=== PATIENT | female | born 1955 | race Hispanic/Latino ===

== ENCOUNTER 2019-06-03 15:56 | Emergency (ER) | payer OTHER, MEDICARE ==
[2019-06-03 16:50] LABS: HEMATOCRIT 35.3 % (36-48); LYMPHOCYTES % (AUTO) 33.5 % (21.0-51.0); MEAN CORPUSCULAR HGB CONC 34.1 g/dL (32.0-36.0); MONOCYTES % (AUTO) 7.1 % (3.0-13.0); NEUTROPHILS % (AUTO) 54.4 % (40.0-77.0); NUCLEATED RED BLOOD CELLS 0.1 % (0.0-0.19); PLATELET COUNT (AUTO) 224 K/uL (130-400); RED BLOOD CELL COUNT(AUTO) 4.01 MIL/uL (4.00-5.50); RED CELL DISTRIBUTION WIDTH 12.4 % (11.0-15.5); WHITE BLOOD COUNT (AUTO) 5.9 K/uL (4.8-10.8)
[2019-06-03 16:59] LABS: CREATININE 0.8 mg/dL (0.5-1.5); POTASSIUM 3.4 mmol/L (3.5-5.1)
[2019-06-03 17:03] LABS: INR 0.93 (0.85-1.15); PARTIAL THROMBOPLASTIN TIME 24.8 SEC (26.3-35.5); PROTHROMBIN TIME 9.8 SEC (9.6-11.6)
[2019-06-03 17:09] LABS: ALBUMIN 4.1 g/dL (3.5-5.0); BILIRUBIN,TOTAL 1.5 mg/dL (0.2-1.0); TOTAL PROTEIN, SERUM 7.6 g/dL (6.0-8.3)
[2019-06-03 17:20] LABS: B-TYPE NATRIURETIC PEPTIDE 26 pg/mL (0-100)
[2019-06-03] MEDS ORDERED: KETOROLAC TROMETHAMINE 15MG/ML ONE (17:38)
[2019-06-03] MEDS ORDERED: ASPIRIN 325 MG TABLET ONE (19:14)
[2019-06-03] MEDS ORDERED: LORAZEPAM 2 MG/ML 1 ML VIAL ONE (19:15)
== END 2019-06-03 20:51 | disposition home or self-care (01) ==
LOC: EDH 15:56
DX: R07.89 Other chest pain (principal); M25.511 Pain in right shoulder; F41.9 Anxiety disorder, unspecified; I10 Essential (primary) hypertension; Z85.3 Personal history of malignant neoplasm of breast; Z91.041 Radiographic dye allergy status; Z88.8 Allergy status to other drugs, medicaments and biological substances; Z79.899 Other long term (current) drug therapy
CPT/HCPCS: 36415; 71045; 80053; 82550; 83874; 83880; 84484 ×2; 85025; 85610; 85730; 93005; 96374; 96375; 99285; J1885; J2060

== ENCOUNTER → 2019-08-27 | Outpatient (CLI) | payer OTHER, MEDICARE | END | disposition home or self-care (01) | LOC: RAH 09:12 | PROVIDERS: ATTEND Internal Medicine Gastroenterology | DX: K76.0 Fatty (change of) liver, not elsewhere classified (principal); N28.1 Cyst of kidney, acquired | CPT/HCPCS: 76700 ==

== ENCOUNTER → 2019-09-27 | Outpatient (CLI) | payer OTHER, MEDICARE | END | disposition home or self-care (01) | LOC: RAH 08:40 | PROVIDERS: ATTEND Urology | DX: R31.0 Gross hematuria (principal); N13.30 Unspecified hydronephrosis; I87.8 Other specified disorders of veins; Z90.49 Acquired absence of other specified parts of digestive tract | CPT/HCPCS: 74176 ==

== ENCOUNTER → 2019-11-10 | Outpatient (CLI) | payer OTHER, MEDICARE ==
[~2019-11-10] MED LIST: FUROSEMIDE 10 MG/ML 2ML VIAL ONE
== END | disposition home or self-care (01) ==
LOC: RAH 14:04
PROVIDERS: ATTEND Urology
DX: N13.39 Other hydronephrosis (principal)
CPT/HCPCS: 78708; A9562; J1940

== ENCOUNTER → 2020-09-19 | Outpatient (CLI) | payer MEDICARE ==
[~2020-09-19] MED LIST changes: -FUROSEMIDE 10 MG/ML 2ML VIAL ONE; +FUROSEMIDE 10 MG/ML 4ML VIAL ONE
== END | disposition home or self-care (01) ==
LOC: RAH 13:57
PROVIDERS: ATTEND Urology
DX: N13.39 Other hydronephrosis (principal)
CPT/HCPCS: 78708; A9562; J1940

== ENCOUNTER 2020-12-20 05:55 | Day surgery (SDC) | payer MEDICARE ==
[~2020-12-20] VITALS: Ht 176.5 cm; Wt 76.2 kg
[~2020-12-20 05:55] MED LIST changes: +AMLO-258 PO; +DICY20TA11 PO; -FUROSEMIDE 10 MG/ML 4ML VIAL ONE; +LOSA25TA41 PO; +OMEP20TA25 PO; +TRAM50TA4 PO
[2020-12-20] MEDS ORDERED: SODIUM CHLORIDE 0.9% 1000ML 1,000 ML IV ONE (06:14)
[2020-12-20 07:06] VITALS: BP 115/61
[2020-12-20] MEDS ORDERED: PROPOFOL 10 MG/ML 20ML VIAL IV ONE (07:59)
[2020-12-20 08:15] VITALS: BP 105/53
[2020-12-20 08:20] VITALS: BP 120/69
[2020-12-20 08:25] VITALS: BP 125/68
[2020-12-20 08:30] VITALS: BP 135/65
[2020-12-20 08:45] VITALS: BP 133/71
== END 2020-12-20 08:50 | disposition home or self-care (01) ==
LOC: DAH 05:55 → ENDO 05:55
PROVIDERS: ATTEND Internal Medicine Gastroenterology
DX: K31.89 Other diseases of stomach and duodenum (principal); Z20.822 Contact with and (suspected) exposure to COVID-19; R14.0 Abdominal distension (gaseous); K59.00 Constipation, unspecified; E80.4 Gilbert syndrome; K76.0 Fatty (change of) liver, not elsewhere classified; I10 Essential (primary) hypertension; K21.9 Gastro-esophageal reflux disease without esophagitis; Z79.899 Other long term (current) drug therapy; Z79.82 Long term (current) use of aspirin; Z85.3 Personal history of malignant neoplasm of breast; Z72.89 Other problems related to lifestyle; Z88.8 Allergy status to other drugs, medicaments and biological substances; Z88.3 Allergy status to other anti-infective agents; Z80.0 Family history of malignant neoplasm of digestive organs
CPT/HCPCS: 43237; A4215 ×2; A4221; A4222; A4223; A4606; A4620; A4657; A4663; C9803; J2704; J7030; U0003

== ENCOUNTER 2021-01-02 06:18 | Day surgery (SDC) | payer MEDICARE ==
[2021-01-02] VITALS (7 sets, daily range): BP systolic 119–135; BP diastolic 66–85
[~2021-01-02] VITALS: Ht 175.3 cm; Wt 74.4 kg
[~2021-01-02 06:18] MED LIST changes: -DICY20TA11 PO; -OMEP20TA25 PO
[2021-01-02] MEDS ORDERED: SODIUM CHLORIDE 0.9% 1000ML 1,000 ML IV ONE (06:19)
[2021-01-02] MEDS ORDERED: PROPOFOL 10 MG/ML 20ML VIAL IV ONE ×2 (06:58→08:22)
== END 2021-01-02 10:15 | disposition home or self-care (01) ==
LOC: ENDO 06:18 → DAH 06:18 → ENDO 10:15
PROVIDERS: ATTEND Internal Medicine Gastroenterology
DX: K31.89 Other diseases of stomach and duodenum (principal); R14.0 Abdominal distension (gaseous); K21.9 Gastro-esophageal reflux disease without esophagitis; K59.00 Constipation, unspecified; E80.4 Gilbert syndrome; K76.0 Fatty (change of) liver, not elsewhere classified; I10 Essential (primary) hypertension; Z80.0 Family history of malignant neoplasm of digestive organs; Z85.3 Personal history of malignant neoplasm of breast; Z90.49 Acquired absence of other specified parts of digestive tract; Z98.890 Other specified postprocedural states; Z90.13 Acquired absence of bilateral breasts and nipples
CPT/HCPCS: 43238; A4215 ×2; A4216; A4221; A4222; A4223; A4606; A4620; A4657; A4663; J2704 ×2; J7030

== ENCOUNTER → 2021-04-06 | Outpatient (CLI) | payer MEDICARE ==
[~2021-04-06] MED LIST changes: +FUROSEMIDE 40MG VIAL ONE
== END | disposition home or self-care (01) ==
LOC: RAH 13:48
PROVIDERS: ATTEND Internal Medicine Hematology & Oncology
DX: C50.919 Malignant neoplasm of unspecified site of unspecified female breast (principal); N60.11 Diffuse cystic mastopathy of right breast; E86.0 Dehydration; D64.9 Anemia, unspecified; N13.30 Unspecified hydronephrosis
CPT/HCPCS: 78708; A9562; J1940

== ENCOUNTER 2022-06-05 11:00 | Emergency (ER) | payer MEDICARE ==
[~2022-06-05] VITALS: Ht 175.3 cm; Wt 77.1 kg
[~2022-06-05 11:00] MED LIST changes: -FUROSEMIDE 40MG VIAL ONE
[2022-06-05 11:30] LABS: EOSINOPHILS % (AUTO) 2.7 % (0.0-8.0); HEMATOCRIT 38.2 % (36-48); LYMPHOCYTES % (AUTO) 48.8 % (21.0-51.0); MEAN CORPUSCULAR HEMOGLOBIN 29.5 pg (27.0-33.0); MEAN CORPUSCULAR VOLUME 86.8 fL (79-99); MONOCYTES % (AUTO) 7.3 % (3.0-13.0); NEUTROPHILS % (AUTO) 39.8 % (40.0-77.0); PLATELET COUNT (AUTO) 237 K/uL (130-400); RED CELL DISTRIBUTION WIDTH 12.7 % (11.0-15.5); WHITE BLOOD COUNT (AUTO) 5.2 K/uL (4.8-10.8)
[2022-06-05] MEDS ORDERED: MECLIZINE HCL 25 MG TABLET PO ONE (11:30)
[2022-06-05 11:40] LABS: CREATININE 0.8 mg/dL (0.5-1.5); POTASSIUM 3.6 mmol/L (3.5-5.1)
[2022-06-05 11:43] LABS: INR 0.93 (0.85-1.15); PROTHROMBIN TIME 9.8 SEC (9.6-11.6)
[2022-06-05 11:44] LABS: PARTIAL THROMBOPLASTIN TIME 24.2 SEC (26.3-35.5)
[2022-06-05 11:45] LABS: APPEARANCE,URINE CLEAR (CLEAR); BILIRUBIN,URINE NEGATIVE (NEGATIVE); COLOR,URINE LIGHT-YELLOW (YELLOW); GLUCOSE, URINE (UA) NEGATIVE (NEGATIVE); KETONES,URINE NEGATIVE (NEGATIVE); LEUKOCYTE ESTERASE ,URINE NEGATIVE Leu/uL (NEGATIVE); NITRATE,URINE NEGATIVE (NEGATIVE); PH,URINE 5.5 (5.0-8.0); PROTEIN,URINE NEGATIVE (NEGATIVE); UROBILINOGEN,URINE 0.2 mg/dL (0.2-1.0)
[2022-06-05 11:45] LABS: ALBUMIN 4.3 g/dL (3.5-5.0); TOTAL PROTEIN, SERUM 7.7 g/dL (6.0-8.3)
[2022-06-05 11:58] LABS: MUCUS,URINE RARE LPF (None Seen); SQUAMOUS EPITHELIAL CELL,UR RARE /HPF (0-2); WBC,URINE 0-1 /HPF (0-1)
[2022-06-05 12:09] LABS: B-TYPE NATRIURETIC PEPTIDE 28 pg/mL (0-100)
[2022-06-05] MEDS ORDERED: MECL-226 PO (13:11)
[2022-06-05 13:25] VITALS: BP 136/85
== END 2022-06-05 13:31 | disposition home or self-care (01) ==
LOC: EDH 11:00
DX: R42 Dizziness and giddiness (principal); I10 Essential (primary) hypertension; Z90.89 Acquired absence of other organs; Z98.890 Other specified postprocedural states; Z90.49 Acquired absence of other specified parts of digestive tract; Z79.899 Other long term (current) drug therapy; Z88.8 Allergy status to other drugs, medicaments and biological substances
CPT/HCPCS: 36415; 70450; 71045; 80053; 81001; 82550; 82948; 83721; 83880; 84484; 85025; 85610; 85730; 93005

== ENCOUNTER → 2022-06-29 | Outpatient (CLI) | payer MEDICARE ==
[~2022-06-29] MED LIST changes: +MECL-226 PO
== END | disposition home or self-care (01) ==
LOC: SHCH 15:23
PROVIDERS: ATTEND Internal Medicine Cardiovascular Disease
DX: R00.1 Bradycardia, unspecified (principal)
CPT/HCPCS: 93306; 93356

== ENCOUNTER → 2022-07-24 | Outpatient (CLI) | payer MEDICARE ==
[~2022-07-24] MED LIST changes: +ALBUTEROL 0.083% 2.5 MG/3 ML INH IH ONE
== END | disposition home or self-care (01) ==
LOC: RESP 08:32
PROVIDERS: ATTEND Internal Medicine Cardiovascular Disease
DX: R06.02 Shortness of breath (principal); R07.9 Chest pain, unspecified
CPT/HCPCS: 94060; 94727; 94729

== ENCOUNTER → 2023-03-24 | Outpatient (CLI) | payer MEDICARE ==
[~2023-03-24] MED LIST changes: -ALBUTEROL 0.083% 2.5 MG/3 ML INH IH ONE
== END | disposition home or self-care (01) ==
LOC: RAH 09:02
PROVIDERS: ATTEND Internal Medicine Gastroenterology
DX: K44.9 Diaphragmatic hernia without obstruction or gangrene (principal); R10.11 Right upper quadrant pain; C49.A2 Gastrointestinal stromal tumor of stomach; Z80.0 Family history of malignant neoplasm of digestive organs
CPT/HCPCS: 74240

== ENCOUNTER 2023-04-04 08:35 | Emergency (ER) | payer MEDICARE ==
[~2023-04-04] VITALS: Ht 175.3 cm; Wt 78.0 kg
[2023-04-04 09:35] LABS: BASOPHILS % (AUTO) 1.4 % (0.0-5.0); EOSINOPHILS % (AUTO) 4.3 % (0.0-8.0); HEMATOCRIT 38.7 % (36-48); LYMPHOCYTES % (AUTO) 33.5 % (21.0-51.0); MEAN CORPUSCULAR HEMOGLOBIN 29.5 pg (27.0-33.0); MEAN CORPUSCULAR HGB CONC 33.3 g/dL (32.0-36.0); MEAN CORPUSCULAR VOLUME 88.4 fL (79-99); MONOCYTES % (AUTO) 8.1 % (3.0-13.0); NEUTROPHILS % (AUTO) 52.3 % (40.0-77.0); PLATELET COUNT (AUTO) 218 K/uL (130-400); RED BLOOD CELL COUNT(AUTO) 4.38 MIL/uL (4.00-5.50); RED CELL DISTRIBUTION WIDTH 11.9 % (11.0-15.5); WHITE BLOOD COUNT (AUTO) 5.2 K/uL (4.8-10.8)
[2023-04-04 09:45] LABS: CREATININE 0.8 mg/dL (0.5-1.5); POTASSIUM 4.6 mmol/L (3.5-5.1)
[2023-04-04 09:49] LABS: ALBUMIN 3.9 g/dL (3.5-5.0); TOTAL PROTEIN, SERUM 7.5 g/dL (6.0-8.3)
[2023-04-04 09:58] LABS: APPEARANCE,URINE CLEAR (CLEAR); BILIRUBIN,URINE NEGATIVE (NEGATIVE); COLOR,URINE LIGHT-YELLOW (YELLOW); GLUCOSE, URINE (UA) >=1000 mg/dL (NEGATIVE); KETONES,URINE 5 mg/dL (NEGATIVE); LEUKOCYTE ESTERASE ,URINE NEGATIVE Leu/uL (NEGATIVE); NITRATE,URINE NEGATIVE (NEGATIVE); OCCULT BLOOD,URINE SMALL (NEGATIVE); PH,URINE 5.5 (5.0-8.0); PROTEIN,URINE 30 mg/dL (NEGATIVE); UROBILINOGEN,URINE 0.2 mg/dL (0.2-1.0)
[2023-04-04 10:05] LABS: BACTERIA,URINE RARE /HPF (None Seen); MUCUS,URINE RARE LPF (None Seen); SQUAMOUS EPITHELIAL CELL,UR RARE /HPF (0-2)
[2023-04-04] MEDS ORDERED: 0.9%NACL 1000ML 1,000 ML IV ONE (11:30)
[2023-04-04] MEDS ORDERED: INSULIN HUMULIN R 100 UNIT/ML 3ML IV ONE (11:30)
[2023-04-04] MEDS ORDERED: METF-446 PO (13:57)
[2023-04-04 14:00] VITALS: BP 166/70; PULSE 62; RESP 16; O2SAT 100
== END 2023-04-04 14:12 | disposition home or self-care (01) ==
LOC: EDH 08:35
DX: I10 Essential (primary) hypertension (principal); E11.65 Type 2 diabetes mellitus with hyperglycemia; E78.00 Pure hypercholesterolemia, unspecified; Z79.84 Long term (current) use of oral hypoglycemic drugs; Z85.3 Personal history of malignant neoplasm of breast; Z88.8 Allergy status to other drugs, medicaments and biological substances; Z90.49 Acquired absence of other specified parts of digestive tract
CPT/HCPCS: 99284; 96374; 96361; 80053; 85025; 82948 ×2; 82010; 81001; 36415; 93005; J1815; J7030

== ENCOUNTER 2023-08-07 13:00 | Emergency (ER) | payer MEDICARE ==
[~2023-08-07] VITALS: Ht 175.3 cm; Wt 77.1 kg
[~2023-08-07 13:00] MED LIST changes: +METF-446 PO
[2023-08-07 13:48] LABS: BASOPHILS # (AUTO) 0.05 K/uL (0.00-0.20); BASOPHILS % (AUTO) 0.7 % (0.0-5.0); EOSINOPHILS # (AUTO) 0.28 K/uL (0.00-0.70); EOSINOPHILS % (AUTO) 4.1 % (0.0-8.0); HEMATOCRIT 37.9 % (36-48); IMMATURE GRANULOCYTE ABSOLUTE 0.02 K/uL (0-1); LYMPHOCYTES # (AUTO) 2.2 K/uL (1.0-4.8); LYMPHOCYTES % (AUTO) 32.3 % (21.0-51.0); MEAN CORPUSCULAR HEMOGLOBIN 29.9 pg (27.0-33.0); MEAN CORPUSCULAR HGB CONC 33.2 g/dL (32.0-36.0); MEAN CORPUSCULAR VOLUME 89.8 fL (79-99); MONOCYTES # (AUTO) 0.7 K/uL (0.1-1.0); MONOCYTES % (AUTO) 9.6 % (3.0-13.0); NEUTROPHILS # (AUTO) 3.7 K/uL (1.8-7.7); PLATELET COUNT (AUTO) 264 K/uL (130-400); RED BLOOD CELL COUNT(AUTO) 4.22 MIL/uL (4.00-5.50); RED CELL DISTRIBUTION WIDTH 12.9 % (11.0-15.5); WHITE BLOOD COUNT (AUTO) 6.9 K/uL (4.8-10.8)
[2023-08-07 13:57] LABS: CREATININE 0.8 mg/dL (0.5-1.5); POTASSIUM 3.8 mmol/L (3.5-5.1)
[2023-08-07 14:12] LABS: ALBUMIN 3.9 g/dL (3.5-5.0); BILIRUBIN,TOTAL 1.3 mg/dL (0.2-1.0); TOTAL PROTEIN, SERUM 7.6 g/dL (6.0-8.3)
[2023-08-07 14:28] LABS: APPEARANCE,URINE CLEAR (CLEAR); BILIRUBIN,URINE NEGATIVE (NEGATIVE); COLOR,URINE LIGHT-YELLOW (YELLOW); GLUCOSE, URINE (UA) NEGATIVE (NEGATIVE); KETONES,URINE NEGATIVE (NEGATIVE); LEUKOCYTE ESTERASE ,URINE NEGATIVE Leu/uL (NEGATIVE); NITRATE,URINE NEGATIVE (NEGATIVE); OCCULT BLOOD,URINE NEGATIVE (NEGATIVE); PROTEIN,URINE NEGATIVE (NEGATIVE); UROBILINOGEN,URINE 0.2 mg/dL (0.2-1.0)
[2023-08-07 14:31] LABS: ADD UA MICROSCOPIC NO
[2023-08-07 14:36] LABS: SARS-CoV-2, RNA, NAAT NEGATIVE SARS CoV-2 (NEGATIVE)
[2023-08-07 14:39] LABS: INFLUENZA TYPE A Negative For Type A (NEGATIVE); INFLUENZA TYPE B Negative For Type B (NEGATIVE)
[2023-08-07] MEDS ORDERED: IBUP-2070 PO (16:24)
[2023-08-07] MEDS ORDERED: KETOROLAC 30MG VIAL (30MG/ML) IVP ONE (16:30)
[2023-08-07] MEDS ORDERED: KETOROLAC 30MG VIAL (30MG/ML) IM ONE (17:00)
[2023-08-07 17:31] VITALS: BP 157/64; PULSE 80; RESP 16; O2SAT 97
== END 2023-08-07 17:40 | disposition home or self-care (01) ==
LOC: EDH 13:00
DX: M25.512 Pain in left shoulder (principal); I10 Essential (primary) hypertension; E11.9 Type 2 diabetes mellitus without complications; E78.00 Pure hypercholesterolemia, unspecified; Z20.822 Contact with and (suspected) exposure to COVID-19; Z90.49 Acquired absence of other specified parts of digestive tract; Z90.89 Acquired absence of other organs; Z90.710 Acquired absence of both cervix and uterus; Z79.899 Other long term (current) drug therapy; Z98.890 Other specified postprocedural states; Z88.8 Allergy status to other drugs, medicaments and biological substances
CPT/HCPCS: 99285; 71045; 87635; 84484 ×2; 80053; 85025; 87804 ×2; 81003; 36415; 96372; 93005 ×2; C9803; J1885

== ENCOUNTER 2025-02-02 00:40 | Emergency (ER) | payer MEDICARE, OTHER ==
[~2025-02-02] VITALS: Ht 170.2 cm; Wt 80.7 kg
[~2025-02-02 00:40] MED LIST changes: +IBUP-2070 PO
--- NOTE | 2025-02-02 01:02 | ERN ---
ED Note History of Present Illness Stated Complaint: C/O ABD PAIN WITH PAIN AND BURNING WHEN VOIDING Chief Complaint: Abdominal Pain Time Seen by MD: 00:45 Dictation: Patient is a 69-year-old female with a past medical history of diabetes, hypertension, breast cancer status post mastectomy bilateral, cholecystectomy, oophorectomy who presented to the ER complaining of abdominal pain radiating to her back, she stated the symptoms started 4 hours prior arrival to the ER, around 10:30 p.m., patient describes a bloating of abdomen, pelvic discomfort also lower back pain bilateral. Patient took a pill for constipation since her recommended think the patient has a constipation due to abdominal bloating. She also describes some urinary symptoms, dysuria. She denies chest pain, no fever, no chills. Allergies: Coded Allergies: guaifenesin (Unverified Allergy, Unknown, 12/19/20) iodine (Unverified Allergy, Unknown, 12/19/20) Uncoded Allergies: PAPER TAPE (Allergy, Unknown, 12/19/20) Home Meds Active Scripts Simethicone (Simethicone) 80 Mg Tab.chew, 1 TAB PO TID for gas for 6 Days, #20 TAB 0 Refills Prov:KEYANA LOPEZ MD 02/02/25 Ibuprofen (Ibuprofen) 600 Mg Tablet, 600 MG PO Q6H PRN for PAIN, #20 TAB Prov:MARK BELLE MD 08/07/23 Metformin HCl (Metformin HCl) 1,000 Mg Tablet, 1000 MG PO BID, #60 TAB Prov:MARK BELLE MD 04/04/23 Meclizine HCl (Meclizine HCl) 12.5 Mg Tablet, 25 MG PO TIDP, #45 TAB Prov:JAZ LOVELL 06/05/22 Reported Medications Amlodipine Besylate (Amlodipine Besylate) 10 Mg Tablet, 10 MG PO HS, TAB 12/19/20 Losartan Potassium (Losartan Potassium) 25 Mg Tablet, 25 MG PO AM, TAB 12/19/20 Tramadol Hcl (Tramadol HCl) 50 Mg Tablet, 50 MG PO DAILY, TAB 12/19/20 Past Medical History Past Medical History: Diabetes-Type II, Hypertension, Other Additional Past Medical Hx: HX OF BREAST CA (IN REMISSION) Surgical History: Hysterectomy, Cholecystectomy, Other Surgical History Other: BILATERAL BREAST MASTECTOMY Family History: Negative Social History: Negative Review of System Dictation NEGATIVE EXCEPT PER HPI Constitutional: Negative for fever,chills, and weight loss Eyes: Negative for injury, pain,redness, and discharge ENT: Negative for injury,pain or swelling Cardiovascular: denies chest pain, palpitations, and edema Respiratory: Negative for shortness of breath, cough, and wheezing, Abdomen/GI: Abdominal pain, bloating Back: Negative for injury and pain : Dysuria MS/Extremity: Negative for injury and deformity Skin: Negative for rash, and discoloration Neuro: Negative for headache, weakness, numbness, tingling, and seizure Psych: Negative for suicide ideation, homicidal ideation, and hallucinations Initial Vital Sign VS Vital Signs Date Time Temp Pulse Resp B/P (MAP) Pulse Ox O2 Delivery O2 Flow Rate FiO2 02/02/25 00:43 97.3 51 20 179/79 97 Room Air 02/02/25 02:20 0 21 Physical Exam Dictation General: awake, alert, NAD Head/Face: Normocephalic, atraumatic Eyes: PERRL, EOMI, vision at baseline ENT: oral cavity clear, TMs clear, no signs of infection Neck: Trachea midline, supple, no nuchal rigidity Cardiovascular: RRR, normal S1/S2, No MRGs, no JVD Respiratory: CTAB, no respiratory distress, No rales or wheezes Abdomen: Diffuse tenderness, tympanic Skin: Warm, dry, normal turgor, no rash MS/Extremity: Pulses equal, no cyanosis, neurovascular intact, FROM Neuro: COAx4, GCS 15, strength 5/5, CN 2-12 intact, normal cerebellar exam, normal gait, Psych: Normal behavior, mood, and affect normal Results (Laboratory/Radiology) Laboratory/Radiology Laboratory Tests Test 02/02/25 00:58 02/02/25 01:10 White Blood Count 8.1 K/uL (4.8-10.8) Red Blood Count 4.41 MIL/uL (4.00-5.50) Hemoglobin 13.2 g/dL (12.0-16.0) Hematocrit 39.5 % (36-48) Mean Corpuscular Volume 89.6 fL (79-99) Mean Corpuscular Hemoglobin 29.9 pg (27.0-33.0) Mean Corpuscular Hemoglobin Concent 33.4 g/dL (32.0-36.0) Red Cell Distribution Width 12.8 % (11.0-15.5) Platelet Count 255 K/uL (130-400) Mean Platelet Volume 9.3 fL (7.5-10.5) Immature Granulocyte % (Auto) 0.2 % (0-1) Neutrophils (%) (Auto) 50.6 % (40.0-77.0) Lymphocytes (%) (Auto) 35.5 % (21.0-51.0) Monocytes (%) (Auto) 8.9 % (3.0-13.0) Eosinophils (%) (Auto) 4.1 % (0.0-8.0) Basophils (%) (Auto) 0.7 % (0.0-5.0) Neutrophils # (Auto) 4.1 K/uL (1.8-7.7) Lymphocytes # (Auto) 2.9 K/uL (1.0-4.8) Monocytes # (Auto) 0.7 K/uL (0.1-1.0) Eosinophils # (Auto) 0.33 K/uL (0.00-0.70) Basophils # (Auto) 0.06 K/uL (0.00-0.20) Absolute Immature Granulocyte (auto 0.02 K/uL (0-1) Nucleated Red Blood Cells 0.0 % (0.0-0.19) Sodium Level 139 mmol/L (136-145) Potassium Level 4.2 mmol/L (3.5-5.1) Chloride Level 103 mmol/L (101-111) Carbon Dioxide Level 30 mmol/L (21-32) Blood Urea Nitrogen 14 mg/dL (7-18) Creatinine 0.7 mg/dL (0.5-1.0) Glomerular Filtration Rate Calc 95 mL/min (>90) Random Glucose 139 mg/dL (70-105) H Total Calcium 9.6 mg/dL (8.5-10.1) Total Bilirubin 1.1 mg/dL (0.2-1.0) H Aspartate Amino Transf (AST/SGOT) 39 U/L (10-37) H Alanine Aminotransferase (ALT/SGPT) 105 U/L (12-78) H Alkaline Phosphatase 113 U/L (50-136) Total Protein 8.2 g/dL (6.0-8.3) Albumin 4.2 g/dL (3.5-5.0) Urine Color COLORLESS (YELLOW) Urine Appearance CLEAR (CLEAR) Urine pH 6.0 (5.0-8.0) Urine Specific [place] 1.003 (1.001-1.031) Urine Protein NEGATIVE mg/dL (NEGATIVE) Urine Glucose (UA) NEGATIVE mg/dL (NEGATIVE) Urine Ketones NEGATIVE mg/dL (NEGATIVE) Urine Occult Blood NEGATIVE (NEGATIVE) Urine Nitrate NEGATIVE (NEGATIVE) Urine Bilirubin NEGATIVE mg/dL (NEGATIVE) Urine Urobilinogen 0.2 mg/dL (0.2-1.0) Urine Leukocyte Esterase NEGATIVE Becca/uL ED Course ED Course Orders Procedure Category Date Status Time Urinalysis Profile LAB 02/02/25 Complete 00:52 Cbc With Differential LAB 02/02/25 Complete 00:52 Comprehensive LAB 02/02/25 Complete Metabolic Panel 00:52 Ct Abdomen/Pelvis W/O CT 02/02/25 Taken Contrast 01:45 Morphine 2mg Syg PHA 02/02/25 Complete (Morphine 2mg Syg) 02:00 Simethicone (Mylicon) PHA 02/02/25 In Process 02:30 Current Medications Medications (Trade) Dose Ordered Sig/Eric Route PRN Reason Start Time Stop Time Status Last Admin Dose Admin Morphine Sulfate (morPHINE 2MG SYG) 2 mg ONCE ONCE IVP 02/02/25 02:00 02/02/25 02:01 DC 02/02/25 03:15 Simethicone (Mylicon) 160 mg PCHS PRN PO GI GAS 02/02/25 02:30 03/04/25 02:29 02/02/25 03:42 Vital Signs Date Time Temp Pulse Resp B/P (MAP) Pulse Ox O2 Delivery O2 Flow Rate FiO2 02/02/25 05:51 52 19 155/81 98 Room Air* 0 02/02/25 04:50 51 17 151/68 97 Room Air* 0 02/02/25 03:47 54 16 150/76 97 Room Air* 0 02/02/25 02:20 98.2 56 15 126/65 96 Room Air* 0 02/02/25 00:43 97.3 51 20 179/79 97 Room Air Medical Decision Making MDM 69-year-old female who presented to the ER complaining of abdominal bloating, painful, dysuria. Symptoms started 4 hours prior to presentation to the ER. -urinary tract infection -colitis -abdominal pain. -food poison Laboratory workup performed CBC and BNP in UA Result was within normal limits. Decision was to perform a CT images of abdomen and pelvis due to persistent abdominal pain. Patient received simethicone, IV fluids for further hydration Patient was evaluated again at bedside, stated that abdominal pain has improved. We are pending final report from CT images of abdomen and pelvis. If CT negative patient he will be discharged home. Treatment nerve results negative for acute findings in the CT abdomen and pelvis. Patient will be discharged home with recommendation to follow up with the PCP in next 24 hours. DX & DISP Disposition: Discharge Departure Impression: Primary Impression: Abdominal pain Additional Impressions: Food poisoning, Abdominal bloating Condition: Stable Scripts Simethicone (Simethicone) 80 Mg Tab.chew 1 TAB PO TID for gas for 6 Days, #20 TAB 0 Refills Prov: KEYANA LOPEZ MD 02/02/25 Additional Instructions: RETURN TO ER FOR ANY ACUTE OR WORSENING SYMPTOMS. FOLLOW-UP IN 1-2 DAYS WITH PRIMARY PROVIDER FOR RECHECK OF TODAY'S SYMPTOMS. Referrals: ROSE MARIE AVILA MD (PCP) KEYANA LOPEZ MD February 02, 2025 01:02
[2025-02-02 01:05] LABS: BASOPHILS # (AUTO) 0.06 K/uL (0.00-0.20); BASOPHILS % (AUTO) 0.7 % (0.0-5.0); EOSINOPHILS # (AUTO) 0.33 K/uL (0.00-0.70); EOSINOPHILS % (AUTO) 4.1 % (0.0-8.0); HEMATOCRIT 39.5 % (36-48); IMMATURE GRANULOCYTE ABSOLUTE 0.02 K/uL (0-1); LYMPHOCYTES # (AUTO) 2.9 K/uL (1.0-4.8); LYMPHOCYTES % (AUTO) 35.5 % (21.0-51.0); MEAN CORPUSCULAR HEMOGLOBIN 29.9 pg (27.0-33.0); MEAN CORPUSCULAR HGB CONC 33.4 g/dL (32.0-36.0); MEAN CORPUSCULAR VOLUME 89.6 fL (79-99); MONOCYTES # (AUTO) 0.7 K/uL (0.1-1.0); MONOCYTES % (AUTO) 8.9 % (3.0-13.0); NEUTROPHILS # (AUTO) 4.1 K/uL (1.8-7.7); NEUTROPHILS % (AUTO) 50.6 % (40.0-77.0); PLATELET COUNT (AUTO) 255 K/uL (130-400); RED BLOOD CELL COUNT(AUTO) 4.41 MIL/uL (4.00-5.50); RED CELL DISTRIBUTION WIDTH 12.8 % (11.0-15.5); WHITE BLOOD COUNT (AUTO) 8.1 K/uL (4.8-10.8)
[2025-02-02 01:14] LABS: CREATININE 0.7 mg/dL (0.5-1.0); POTASSIUM 4.2 mmol/L (3.5-5.1)
[2025-02-02 01:19] LABS: ALBUMIN 4.2 g/dL (3.5-5.0); BILIRUBIN,TOTAL 1.1 mg/dL (0.2-1.0); TOTAL PROTEIN, SERUM 8.2 g/dL (6.0-8.3)
[2025-02-02 01:32] LABS: APPEARANCE,URINE CLEAR (CLEAR); BILIRUBIN,URINE NEGATIVE (NEGATIVE); COLOR,URINE COLORLESS (YELLOW); GLUCOSE, URINE (UA) NEGATIVE (NEGATIVE); KETONES,URINE NEGATIVE (NEGATIVE); LEUKOCYTE ESTERASE ,URINE NEGATIVE Leu/uL (NEGATIVE); NITRATE,URINE NEGATIVE (NEGATIVE); OCCULT BLOOD,URINE NEGATIVE (NEGATIVE); PROTEIN,URINE NEGATIVE (NEGATIVE); UROBILINOGEN,URINE 0.2 mg/dL (0.2-1.0)
[2025-02-02 01:33] LABS: ADD UA MICROSCOPIC NO
--- NOTE | 2025-02-02 02:08 | NUR ---
PT CARE ASSUMED AT THIS TIME
[2025-02-02] MEDS: morPHINE 2 MG SYG IVP ONE (03:15)
[2025-02-02] MEDS: SIMETHICONE 80 MG TAB.CHEW PO PRN (03:42)
[2025-02-02] MEDS ORDERED: SIME80TA12 PO (06:22)
[2025-02-02 06:27] VITALS: BP 158/72; PULSE 57; RESP 18; TEMP 98; O2SAT 98
--- NOTE | 2025-02-02 08:19 | HMCIMG ---
CT ABDOMEN/PELVIS W/O CONTRAST HISTORY: Abdominal pain COMPARISON: None TECHNIQUE: Multiple sequential axial images of the abdomen and pelvis were obtained from the dome of the diaphragm through symphysis pubis. Patient was not given contrast through intravenous route. Oral contrast was not given. FINDINGS: No pleural effusion is seen bilaterally. There is no evidence of parenchymal disease or pulmonary nodule of the visualized lower lungs. Degenerative changes of the thoracolumbar spine are present. The heart is not enlarged. There is partial resection of the posterior aspect of the fundus of the stomach. Post cholecystectomy changes are seen. The liver, spleen, adrenal glands and pancreas are unremarkable. There is no evidence of hydronephrosis bilaterally. No evidence of renal stone is seen. Fecal material is seen in the colon. There are normal size retroperitoneal and mesenteric lymph nodes. No ascites is seen. No CT evidence of acute appendicitis is seen. There is fluid-filled small bowel loops and colon may be related to enterocolitis. Pelvic sidewalls are symmetric bilaterally. Bladder is poorly distended. IMPRESSION: 1. Fluid-filled small bowel loops and colon may be related to enterocolitis. CT was performed with one or more following dose reduction techniques: automated exposure control, adjustment of the mA and kv according to patient's size, or use of a iterative reconstruction technique.
== END 2025-02-02 06:38 | disposition home or self-care (01) ==
LOC: EDH 00:40
DX: A05.9 Bacterial foodborne intoxication, unspecified (principal); R14.0 Abdominal distension (gaseous); R10.9 Unspecified abdominal pain; E11.9 Type 2 diabetes mellitus without complications; I10 Essential (primary) hypertension; Z79.84 Long term (current) use of oral hypoglycemic drugs; Z85.3 Personal history of malignant neoplasm of breast; Z88.8 Allergy status to other drugs, medicaments and biological substances; Z90.49 Acquired absence of other specified parts of digestive tract; Z90.710 Acquired absence of both cervix and uterus; Z91.041 Radiographic dye allergy status
CPT/HCPCS: 99285; 74176; 96374; 80053; 85025; 81003; 36415; J2270

== ENCOUNTER → 2025-05-19 | Outpatient (CLI) | payer OTHER ==
[~2025-05-19] MED LIST changes: +IBUP-1492 PO; -IBUP-2070 PO; +REGADENOSON 0.4 MG/5 ML PF SYG IVP ONE; +SIME80TA12 PO
[2025-05-19] MEDS: REGADENOSON 0.4 MG/5 ML PF SYG IVP ONE (10:40)
== END | disposition home or self-care (01) ==
LOC: RAH 07:53
PROVIDERS: ATTEND Internal Medicine Cardiovascular Disease
DX: I10 Essential (primary) hypertension (principal); R94.31 Abnormal electrocardiogram [ECG] [EKG]
CPT/HCPCS: 78452; 93017; J2785; A9500 ×2